=== PATIENT | male | born 1975 | race Caucasian/White ===

== ENCOUNTER 2016-11-05 21:20 | Inpatient (IN) | payer MEDICAID ==
[~2016-11-05] VITALS: Ht 172.7 cm; Wt 71.6 kg
[~2016-11-05 21:20] MED LIST: ACET600C6 PO; ASCO120C PO; BIMA2.5D EACHEYE; CAPT50TA3 PO; CLON-364 PO; CLOP75TA52 PO; COLC0.6T37 PO; DICY20TA3 PO; DORZ10DR21 EACHEYE; FURO80TA3 PO; LEVO100V PO; METO-93 PO; METO25TA91 PO; OM-31CAP4 PO; OMEG500C3 PO; OXYC-293 PO; PANT40TA5 PO; SERTRALINE PO; SIMV40TA3 PO; SOLI5TAB2 PO; VITA1CAP15 PO; [UNRECOGNIZED DRUG - CODE] PO
[2016-11-05] MEDS ORDERED: SODIUM CHLORIDE FLUSH 10ML SYR IVF ONE (22:00)
[2016-11-05] MEDS ORDERED: SODIUM CHLORIDE 0.9% 1,000ML IVBOLUS ONE (22:00)
[2016-11-05 22:36] LABS: ASPARTATE AMINO TRANSFERASE 26 U/L (15-37); BLOOD UREA NITROGEN 28 mg/dL (7-18)
[2016-11-05 22:40] LABS: HEMATOCRIT 46.3 % (39.2-51.8); HEMOGLOBIN 15.5 g/dL (13.7-18.0); WHITE BLOOD COUNT 8.9 x10^3/uL (3.4-10)
[2016-11-05 22:41] LABS: DIFF TOTAL CELLS COUNTED 100 CELL DIFF; IS PT STATUS REG ER OR PRE ER? YES
[2016-11-05 22:43] LABS: VERIFY COUNTS? YES
[2016-11-05 22:44] LABS: LARGE PLATELETS 1+
[2016-11-05] MEDS ORDERED: LIDOCAINE 1%, 20ML ONE (23:16)
[2016-11-05] MEDS ORDERED: LIDOCAINE 1%, 20ML INFIL ONE (23:30)
[2016-11-05] MEDS ORDERED: KETOROLAC 30 MG/1 ML ONE (23:33)
[2016-11-06] MEDS ORDERED: KETOROLAC 30 MG/1 ML IVPush ONE
[2016-11-06] MEDS ORDERED: SODIUM CHLORIDE 0.9% 1,000ML IVBOLUS ONE
[2016-11-06 00:14] LABS: GLUCOSE, CSF 85 mg/dL (40-80)
[2016-11-06] MEDS ORDERED: CEFTRIAXONE PMX 2GM/50ML 50 ML ONE (00:19)
[2016-11-06] MEDS ORDERED: SODIUM CHLORIDE 0.9% 1,000 ML IV SCH (00:30)
[2016-11-06] MEDS ORDERED: VANCOMYCIN 1,300 MG in SODIUM CHLORIDE 0.9% 250 ML IV ONE (00:30)
[2016-11-06] MEDS ORDERED: CEFTRIAXONE PMX 2GM/50ML 50 ML IV ONE (00:30)
[2016-11-06] MEDS ORDERED: VANCOMYCIN PER PHARMACY MC PRN (00:30)
[2016-11-06] MEDS ORDERED: ZOLPIDEM 5MG TABLET PO PRN (00:30)
[2016-11-06] MEDS ORDERED: VANCOMYCIN PER PHARMACY IV ONE (00:30)
[2016-11-06] MEDS ORDERED: CEFTRIAXONE PMX 2GM/50ML 50 ML IV SCH (00:30)
[2016-11-06] MEDS ORDERED: DEXAMETHASONE 4 MG/ML, 1ML IVPush ONE (00:30)
[2016-11-06] MEDS ORDERED: hydrALAzine 20 MG/ML, 1ML IVPush PRN (00:30)
[2016-11-06 00:48] LABS: DAU SCREEN DISCLAIMER
[2016-11-06] MEDS ORDERED: DEXAMETHASONE 4 MG/ML, 1ML ONE (00:53)
[2016-11-06] MEDS ORDERED: PHARMACOKINETIC MONITORING MC PRN (01:00)
[2016-11-06 02:24] VITALS: BP 108/73
[2016-11-06] MEDS: ENOXAPARIN 40 MG/0.4 ML SQ SCH (02:40)
[2016-11-06 07:02] VITALS: BP 108/69
[2016-11-06] MEDS: PANTOPRAZOLE 40 MG IV IVPush SCH (08:29)
[2016-11-06] MEDS: morphine SULFATE 10 MG/ML, 1ML IVPush PRN ×3 (08:39→20:57)
[2016-11-06 08:52] LABS: IS PT STATUS REG ER OR PRE ER? NO
[2016-11-06 11:20] LABS: BLOOD UREA NITROGEN 26 mg/dL (7-18)
[2016-11-06] MEDS: CEFTRIAXONE PMX 2GM/50ML 50 ML IV SCH (12:26)
[2016-11-06 12:35] VITALS: BP 126/82
[2016-11-06 14:06] LABS: BLOOD UREA NITROGEN 24 mg/dL (7-18)
[2016-11-06] MEDS: VANCOMYCIN 1,400 MG in SODIUM CHLORIDE 0.9% 250 ML IV SCH (15:22)
[2016-11-06 17:49] LABS: BLOOD UREA NITROGEN 23 mg/dL (7-18)
[2016-11-06 20:35] VITALS: BP 126/76
[2016-11-06 21:54] LABS: BLOOD UREA NITROGEN 24 mg/dL (7-18)
[2016-11-06] MEDS: SODIUM CHLORIDE 0.9% 1,000 ML IV SCH (23:04)
[2016-11-07] MEDS ORDERED: SODIUM CHLORIDE 0.9% 1,000 ML IV SCH (00:30)
[2016-11-07 01:41] VITALS: BP 104/64
[2016-11-07] MEDS: CEFTRIAXONE PMX 2GM/50ML 50 ML IV SCH (01:46)
[2016-11-07] MEDS: morphine SULFATE 10 MG/ML, 1ML IVPush PRN ×3 (01:46→17:37)
[2016-11-07 02:25] LABS: BLOOD UREA NITROGEN 23 mg/dL (7-18)
[2016-11-07] MEDS: VANCOMYCIN 1,400 MG in SODIUM CHLORIDE 0.9% 250 ML IV SCH (04:02)
[2016-11-07 05:55] LABS: BLOOD UREA NITROGEN 22 mg/dL (7-18)
[2016-11-07 05:58] LABS: ASPARTATE AMINO TRANSFERASE 22 U/L (15-37)
[2016-11-07 07:12] LABS: HEMATOCRIT 36.7 % (39.2-51.8); HEMOGLOBIN 12.3 g/dL (13.7-18.0); WHITE BLOOD COUNT 8.5 x10^3/uL (3.4-10)
[2016-11-07 07:39] LABS: DIFF TOTAL CELLS COUNTED 100 CELL DIFF
[2016-11-07 07:45] LABS: VERIFY COUNTS? YES
[2016-11-07 07:46] LABS: ANISOCYTOSIS 1+; POLYCHROMASIA 1+
[2016-11-07 07:47] LABS: LARGE PLATELETS 1+
[2016-11-07 08:45] VITALS: BP 120/75
[2016-11-07] MEDS: PANTOPRAZOLE 40 MG IV IVPush SCH (09:59)
[2016-11-07] MEDS: ENOXAPARIN 40 MG/0.4 ML SQ SCH (09:59)
[2016-11-07] MEDS: SODIUM CHLORIDE 0.9% 1,000 ML IV SCH (11:23)
[2016-11-07 13:58] VITALS: BP 124/82
[2016-11-07] MEDS ORDERED: OXYcodone IR 5MG TABLET PO PRN (14:00)
[2016-11-07] MEDS: CEFAZOLIN 2,000 MG in DEXTROSE 5% 50 ML IV SCH (17:41)
[2016-11-07] MEDS ORDERED: HYDROmorphone 1 MG/ML, 1ML ONE (19:14)
[2016-11-07] MEDS: HYDROmorphone 2 MG/ML, 1ML IVPush PRN ×2 (19:16→23:29)
[2016-11-07] MEDS ORDERED: KETOROLAC 30 MG/1 ML IVPush PRN (19:30)
[2016-11-07 20:58] VITALS: BP 132/80
[2016-11-08 01:06] VITALS: BP 144/92
[2016-11-08] MEDS: CEFAZOLIN 2,000 MG in DEXTROSE 5% 50 ML IV SCH ×3 (02:12→17:55)
[2016-11-08] MEDS: HYDROmorphone 2 MG/ML, 1ML IVPush PRN ×4 (03:29→15:35)
[2016-11-08 08:38] VITALS: BP 132/85
[2016-11-08] MEDS: ENOXAPARIN 40 MG/0.4 ML SQ SCH (09:00)
[2016-11-08] MEDS ORDERED: KETOROLAC 30 MG/1 ML IVPush ONE (12:00)
[2016-11-08] MEDS ORDERED: OxyconTIN ER 10 MG TAB.ER ONE ×2 (12:04→23:37)
[2016-11-08] MEDS: OxyconTIN ER 20 MG TAB.ER PO SCH (12:06)
[2016-11-08] MEDS: ONDANSETRON 2MG/ML, 2ML IVPush PRN (12:13)
[2016-11-08 15:02] VITALS: BP 131/79
[2016-11-08 19:45] VITALS: BP 126/83
[2016-11-08] MEDS: KETOROLAC 30 MG/1 ML IVPush PRN (20:05)
[2016-11-09] MEDS: OxyconTIN ER 20 MG TAB.ER PO SCH ×2 (00:21→12:26)
[2016-11-09 01:20] VITALS: BP 124/78
[2016-11-09] MEDS: CEFAZOLIN 2,000 MG in DEXTROSE 5% 50 ML IV SCH ×2 (01:28→09:59)
[2016-11-09] MEDS: KETOROLAC 30 MG/1 ML IVPush PRN ×4 (02:55→23:31)
[2016-11-09] MEDS ORDERED: GADOBUTROL 7.5 MMOL/7.5 ML PFS ONE (06:32)
[2016-11-09 08:20] VITALS: BP 125/79
[2016-11-09] MEDS ORDERED: OxyconTIN ER 10 MG TAB.ER ONE (12:24)
[2016-11-09] MEDS: GABAPENTIN 300 MG CAPSULE PO SCH ×2 (12:26→17:35)
[2016-11-09 14:22] VITALS: BP 126/85
[2016-11-09] MEDS ORDERED: CEFAZOLIN PMX 2GM/50ML 50 ML IV SCH (16:00)
[2016-11-09] MEDS: LORazepam 2 MG/ML, 1ML IVPush PRN (16:30)
[2016-11-09] MEDS: CEFAZOLIN PMX 2GM/50ML 50 ML IV SCH (17:36)
[2016-11-09 19:19] VITALS: BP 129/85
[2016-11-10] MEDS ORDERED: OxyconTIN ER 10 MG TAB.ER ONE ×2 (01:01→12:18)
[2016-11-10] MEDS: CEFAZOLIN PMX 2GM/50ML 50 ML IV SCH ×3 (01:22→18:13)
[2016-11-10] MEDS: OxyconTIN ER 20 MG TAB.ER PO SCH ×2 (01:23→12:20)
[2016-11-10 02:53] VITALS: BP 137/74
[2016-11-10] MEDS: ACETAMINOPHEN 325 MG TABLET PO PRN ×2 (05:46→05:47)
[2016-11-10 06:14] LABS: BLOOD UREA NITROGEN 19 mg/dL (7-18)
[2016-11-10 07:57] VITALS: BP 123/80
[2016-11-10] MEDS: GABAPENTIN 300 MG CAPSULE PO SCH ×2 (08:39→17:03)
[2016-11-10] MEDS: KETOROLAC 30 MG/1 ML IVPush PRN ×2 (10:01→19:58)
[2016-11-10 11:59] LABS: HIT LOT CART23835/KIT23844
[2016-11-10 13:53] VITALS: BP 123/77
[2016-11-10 14:01] LABS: HIT OBC PASS; HIT RESULT POSITIVE (NEGATIVE)
[2016-11-10] MEDS: morphine SULFATE 10 MG/ML, 1ML IVPush PRN (17:12)
[2016-11-10 19:00] VITALS: BP 129/77
[2016-11-10] MEDS: LORazepam 2 MG/ML, 1ML IVPush PRN (19:58)
[2016-11-11] MEDS: CEFAZOLIN PMX 2GM/50ML 50 ML IV SCH ×4 (01:08→18:00)
[2016-11-11] MEDS: OxyconTIN ER 20 MG TAB.ER PO SCH ×2 (01:08→12:12)
[2016-11-11 01:29] VITALS: BP 146/83
[2016-11-11] MEDS: KETOROLAC 30 MG/1 ML IVPush PRN ×4 (02:07→23:18)
[2016-11-11] MEDS: ONDANSETRON 2MG/ML, 2ML IVPush PRN (02:07)
[2016-11-11 08:00] VITALS: BP 133/83
[2016-11-11] MEDS: GABAPENTIN 300 MG CAPSULE PO SCH ×3 (08:24→20:33)
[2016-11-11] MEDS ORDERED: BUTALB/APAP/CAFFEINE 50MG/325MG/40MG PO PRN (08:30)
[2016-11-11 14:04] VITALS: BP 146/93
[2016-11-11] MEDS: LORazepam 2 MG/ML, 1ML IVPush PRN (15:24)
[2016-11-11 19:27] VITALS: BP 145/82
[2016-11-11] MEDS: OXYcodone IR 5MG TABLET PO PRN (20:32)
[2016-11-12] MEDS: OxyconTIN ER 20 MG TAB.ER PO SCH ×2 (01:29→14:16)
[2016-11-12] MEDS: CEFAZOLIN PMX 2GM/50ML 50 ML IV SCH ×3 (01:29→21:18)
[2016-11-12 01:35] VITALS: BP 125/76
[2016-11-12 08:00] VITALS: BP 132/86
[2016-11-12] MEDS: LORazepam 2 MG/ML, 1ML IVPush PRN (08:19)
[2016-11-12] MEDS: GABAPENTIN 300 MG CAPSULE PO SCH ×3 (08:20→21:17)
[2016-11-12] MEDS: OXYcodone IR 5MG TABLET PO PRN ×2 (09:24→15:13)
[2016-11-12 14:00] VITALS: BP 147/93
[2016-11-12] MEDS ORDERED: GENTAMICIN 80 MG/2 ML IM SCH ×2 (14:00)
[2016-11-12] MEDS: KETOROLAC 30 MG/1 ML IVPush PRN ×2 (15:13→21:18)
[2016-11-12] MEDS: GENTAMICIN 120 MG in SODIUM CHLORIDE 0.9% 50 ML IV SCH (16:18)
[2016-11-12] MEDS ORDERED: ACETAMINOPHEN 325 MG TABLET PO PRN (17:30)
[2016-11-12] MEDS ORDERED: BUTALB/APAP/CAFFEINE 50MG/325MG/40MG PO PRN (17:30)
[2016-11-12] MEDS ORDERED: hydrALAzine 20 MG/ML, 1ML IVPush PRN (17:30)
[2016-11-12] MEDS ORDERED: ONDANSETRON 2MG/ML, 2ML IVPush PRN (17:30)
[2016-11-12] MEDS ORDERED: ZOLPIDEM 5MG TABLET PO PRN (17:30)
[2016-11-12 19:07] VITALS: BP 136/95
[2016-11-12] MEDS ORDERED: GENTAMICIN 120 MG in SODIUM CHLORIDE 0.9% 50 ML IV SCH (21:00)
[2016-11-12] MEDS: METHOCARBAMOL 750 MG TABLET PO PRN (21:17)
[2016-11-13] MEDS ORDERED: GENTAMICIN 120 MG in SODIUM CHLORIDE 0.9% 50 ML IV SCH (02:00)
[2016-11-13] MEDS ORDERED: GENTAMICIN 80 MG/2 ML IV SCH (02:00)
[2016-11-13 02:16] VITALS: BP 124/76
[2016-11-13] MEDS: GENTAMICIN 120 MG in SODIUM CHLORIDE 0.9% 50 ML IV SCH ×2 (02:49→15:51)
[2016-11-13] MEDS: OxyconTIN ER 20 MG TAB.ER PO SCH ×2 (02:49→14:58)
[2016-11-13] MEDS: METHOCARBAMOL 750 MG TABLET PO PRN (06:00)
[2016-11-13] MEDS: KETOROLAC 30 MG/1 ML IVPush PRN ×2 (06:00→15:56)
[2016-11-13] MEDS: CEFAZOLIN PMX 2GM/50ML 50 ML IV SCH ×3 (06:00→21:17)
[2016-11-13] MEDS: LORazepam 2 MG/ML, 1ML IVPush PRN ×2 (06:10→21:57)
[2016-11-13 06:48] VITALS: BP 116/76
[2016-11-13] MEDS: OXYcodone IR 5MG TABLET PO PRN ×2 (08:56→21:17)
[2016-11-13] MEDS: GABAPENTIN 300 MG CAPSULE PO SCH ×3 (08:56→21:17)
[2016-11-13 12:20] VITALS: BP 123/72
[2016-11-13 19:15] VITALS: BP 144/94
[2016-11-14 02:17] VITALS: BP 139/93
[2016-11-14] MEDS: OxyconTIN ER 20 MG TAB.ER PO SCH ×2 (03:08→15:09)
[2016-11-14] MEDS: GENTAMICIN 120 MG in SODIUM CHLORIDE 0.9% 50 ML IV SCH ×2 (03:09→15:09)
[2016-11-14] MEDS: OXYcodone IR 5MG TABLET PO PRN ×3 (05:31→23:55)
[2016-11-14] MEDS: CEFAZOLIN PMX 2GM/50ML 50 ML IV SCH ×3 (05:31→21:14)
[2016-11-14 07:03] VITALS: BP 140/96
[2016-11-14 07:16] LABS: HEMATOCRIT 34.5 % (39.2-51.8); HEMOGLOBIN 11.4 g/dL (13.7-18.0); WHITE BLOOD COUNT 8.8 x10^3/uL (3.4-10)
[2016-11-14 07:24] LABS: BLOOD UREA NITROGEN 12 mg/dL (7-18)
[2016-11-14 07:33] LABS: ASPARTATE AMINO TRANSFERASE 16 U/L (15-37)
[2016-11-14] MEDS: GABAPENTIN 300 MG CAPSULE PO SCH ×3 (07:58→21:14)
[2016-11-14] MEDS: morphine SULFATE 10 MG/ML, 1ML IVPush PRN ×2 (10:29→20:16)
[2016-11-14] MEDS: LORazepam 2 MG/ML, 1ML IVPush PRN (12:25)
[2016-11-14 14:26] VITALS: BP 137/89
[2016-11-14 20:00] VITALS: BP 162/90
[2016-11-15 02:57] VITALS: BP 144/96
[2016-11-15] MEDS: OxyconTIN ER 20 MG TAB.ER PO SCH ×2 (02:57→15:10)
[2016-11-15] MEDS: GENTAMICIN 120 MG in SODIUM CHLORIDE 0.9% 50 ML IV SCH ×2 (02:57→15:50)
[2016-11-15] MEDS: morphine SULFATE 10 MG/ML, 1ML IVPush PRN ×2 (04:32→13:31)
[2016-11-15] MEDS: CEFAZOLIN PMX 2GM/50ML 50 ML IV SCH ×3 (04:54→21:05)
[2016-11-15 06:37] VITALS: BP 151/83
[2016-11-15 07:00] VITALS: BP 136/93
[2016-11-15] MEDS: GABAPENTIN 300 MG CAPSULE PO SCH ×3 (07:36→21:05)
[2016-11-15] MEDS: OXYcodone IR 5MG TABLET PO PRN ×2 (11:40→21:05)
[2016-11-15 13:30] VITALS: BP 127/90
[2016-11-15] MEDS: LORazepam 2 MG/ML, 1ML IVPush PRN (17:43)
[2016-11-15 19:21] VITALS: BP 137/98
[2016-11-16 01:54] VITALS: BP 124/89
[2016-11-16] MEDS: OxyconTIN ER 20 MG TAB.ER PO SCH ×2 (02:56→15:48)
[2016-11-16] MEDS: GENTAMICIN 120 MG in SODIUM CHLORIDE 0.9% 50 ML IV SCH ×2 (02:57→16:14)
[2016-11-16] MEDS: CEFAZOLIN PMX 2GM/50ML 50 ML IV SCH ×3 (05:23→21:49)
[2016-11-16] MEDS: morphine SULFATE 10 MG/ML, 1ML IVPush PRN ×5 (05:24→21:49)
[2016-11-16 07:52] VITALS: BP 121/81
[2016-11-16] MEDS: GABAPENTIN 300 MG CAPSULE PO SCH ×3 (09:32→20:41)
[2016-11-16 14:30] VITALS: BP 144/82
[2016-11-16 19:46] VITALS: BP 128/82
[2016-11-16] MEDS: METHOCARBAMOL 750 MG TABLET PO PRN (20:41)
[2016-11-17] MEDS: LORazepam 2 MG/ML, 1ML IVPush PRN (00:39)
[2016-11-17 01:35] VITALS: BP 106/71
[2016-11-17] MEDS: GENTAMICIN 120 MG in SODIUM CHLORIDE 0.9% 50 ML IV SCH ×2 (03:49→16:27)
[2016-11-17] MEDS: OxyconTIN ER 20 MG TAB.ER PO SCH ×2 (03:49→14:21)
[2016-11-17] MEDS: CEFAZOLIN PMX 2GM/50ML 50 ML IV SCH ×3 (06:27→23:08)
[2016-11-17] MEDS: morphine SULFATE 10 MG/ML, 1ML IVPush PRN ×4 (06:27→20:16)
[2016-11-17 08:11] VITALS: BP 110/75
[2016-11-17] MEDS: GABAPENTIN 300 MG CAPSULE PO SCH ×3 (08:32→20:16)
[2016-11-17 13:42] VITALS: BP 124/73
[2016-11-17] MEDS: OxyconTIN ER 40 MG TAB.ER PO SCH (20:00)
[2016-11-17] MEDS ORDERED: OxyconTIN ER 20 MG TAB.ER ONE (20:07)
[2016-11-17] MEDS: DOCUSATE 100 MG CAPSULE PO SCH (20:16)
[2016-11-17] MEDS: DULOXETINE 20 MG CAPSULE.DR PO SCH (20:17)
[2016-11-17 21:02] VITALS: BP 118/81
[2016-11-18] MEDS: morphine SULFATE 10 MG/ML, 1ML IVPush PRN ×3 (01:48→19:02)
[2016-11-18 02:00] VITALS: BP 103/67
[2016-11-18] MEDS: GENTAMICIN 120 MG in SODIUM CHLORIDE 0.9% 50 ML IV SCH (04:50)
[2016-11-18 06:31] LABS: HEMATOCRIT 40.4 % (39.2-51.8); HEMOGLOBIN 13.4 g/dL (13.7-18.0); WHITE BLOOD COUNT 7.5 x10^3/uL (3.4-10)
[2016-11-18] MEDS: CEFAZOLIN PMX 2GM/50ML 50 ML IV SCH ×3 (06:33→22:00)
[2016-11-18 06:58] LABS: BLOOD UREA NITROGEN 22 mg/dL (7-18)
[2016-11-18 07:06] VITALS: BP 124/83
[2016-11-18] MEDS: OxyconTIN ER 40 MG TAB.ER PO SCH ×2 (08:00→20:00)
[2016-11-18] MEDS ORDERED: OxyconTIN ER 20 MG TAB.ER ONE ×2 (08:44→20:44)
[2016-11-18] MEDS: DULOXETINE 20 MG CAPSULE.DR PO SCH ×2 (08:47→20:45)
[2016-11-18] MEDS: GABAPENTIN 300 MG CAPSULE PO SCH ×3 (08:47→20:45)
[2016-11-18] MEDS: DOCUSATE 100 MG CAPSULE PO SCH ×2 (08:47→20:45)
[2016-11-18 12:17] VITALS: BP 116/79
[2016-11-18 18:38] VITALS: BP 122/86
[2016-11-19] MEDS: morphine SULFATE 10 MG/ML, 1ML IVPush PRN ×4 (00:42→22:08)
[2016-11-19 02:10] VITALS: BP 118/80
[2016-11-19] MEDS: CEFAZOLIN PMX 2GM/50ML 50 ML IV SCH ×2 (06:11→16:39)
[2016-11-19 06:53] VITALS: BP 125/82
[2016-11-19] MEDS: OxyconTIN ER 40 MG TAB.ER PO SCH ×2 (08:44→20:08)
[2016-11-19] MEDS: METHOCARBAMOL 750 MG TABLET PO PRN (08:44)
[2016-11-19] MEDS: DOCUSATE 100 MG CAPSULE PO SCH ×2 (08:45→19:28)
[2016-11-19] MEDS: GABAPENTIN 300 MG CAPSULE PO SCH ×3 (09:00→21:29)
[2016-11-19] MEDS: OXYcodone IR 5MG TABLET PO PRN ×2 (11:13→20:10)
[2016-11-19] MEDS: DULOXETINE 20 MG CAPSULE.DR PO SCH ×2 (11:13→20:08)
[2016-11-19 13:10] VITALS: BP 114/80
[2016-11-19 19:56] VITALS: BP 124/89
[2016-11-20] MEDS: CEFAZOLIN PMX 2GM/50ML 50 ML IV SCH ×3 (00:08→16:38)
[2016-11-20 02:00] VITALS: BP 118/83
[2016-11-20] MEDS: OXYcodone IR 5MG TABLET PO PRN ×2 (04:38→12:16)
[2016-11-20 08:10] VITALS: BP 114/73
[2016-11-20] MEDS: OxyconTIN ER 40 MG TAB.ER PO SCH ×2 (08:21→21:15)
[2016-11-20] MEDS: DOCUSATE 100 MG CAPSULE PO SCH ×2 (08:22→21:00)
[2016-11-20] MEDS: DULOXETINE 20 MG CAPSULE.DR PO SCH ×2 (08:22→21:15)
[2016-11-20] MEDS: GABAPENTIN 300 MG CAPSULE PO SCH ×3 (08:22→21:16)
[2016-11-20 13:21] VITALS: BP 122/52
[2016-11-20] MEDS: morphine SULFATE 10 MG/ML, 1ML IVPush PRN (17:31)
[2016-11-20 19:23] VITALS: BP 134/79
[2016-11-20] MEDS: LORazepam 2 MG/ML, 1ML IVPush PRN (21:16)
[2016-11-20] MEDS ORDERED: hydrALAzine 20 MG/ML, 1ML IVPush PRN (21:30)
[2016-11-20] MEDS ORDERED: ONDANSETRON 2MG/ML, 2ML IVPush PRN (21:30)
[2016-11-20] MEDS ORDERED: ACETAMINOPHEN 325 MG TABLET PO PRN (21:30)
[2016-11-20] MEDS ORDERED: ZOLPIDEM 5MG TABLET PO PRN (21:30)
[2016-11-21 00:57] VITALS: BP 116/75
[2016-11-21] MEDS: CEFAZOLIN PMX 2GM/50ML 50 ML IV SCH ×3 (01:18→16:39)
[2016-11-21] MEDS: morphine SULFATE 10 MG/ML, 1ML IVPush PRN ×2 (05:10→12:02)
[2016-11-21 07:28] VITALS: BP 112/74
[2016-11-21] MEDS: OxyconTIN ER 40 MG TAB.ER PO SCH ×2 (08:00→20:00)
[2016-11-21] MEDS: DOCUSATE 100 MG CAPSULE PO SCH ×2 (08:40→21:18)
[2016-11-21] MEDS: GABAPENTIN 300 MG CAPSULE PO SCH ×3 (08:40→21:17)
[2016-11-21] MEDS: DULOXETINE 20 MG CAPSULE.DR PO SCH ×2 (08:40→21:17)
[2016-11-21 14:35] VITALS: BP 114/82
[2016-11-21] MEDS: OXYcodone IR 5MG TABLET PO PRN ×2 (16:39→23:22)
[2016-11-21 20:19] VITALS: BP 123/79
[2016-11-22] MEDS: CEFAZOLIN PMX 2GM/50ML 50 ML IV SCH ×3 (00:35→16:38)
[2016-11-22 01:17] VITALS: BP 122/82
[2016-11-22] MEDS: OXYcodone IR 5MG TABLET PO PRN ×3 (04:32→16:38)
[2016-11-22 07:46] VITALS: BP 121/72
[2016-11-22] MEDS: DOCUSATE 100 MG CAPSULE PO SCH ×2 (08:06→19:56)
[2016-11-22] MEDS: DULOXETINE 20 MG CAPSULE.DR PO SCH ×2 (08:06→19:55)
[2016-11-22] MEDS: OxyconTIN ER 40 MG TAB.ER PO SCH ×2 (08:06→19:55)
[2016-11-22] MEDS: GABAPENTIN 300 MG CAPSULE PO SCH ×3 (08:06→19:56)
[2016-11-22 14:14] VITALS: BP 123/79
[2016-11-22 19:17] VITALS: BP 122/83
[2016-11-22] MEDS: LORazepam 2 MG/ML, 1ML IVPush PRN (22:16)
[2016-11-23] MEDS: CEFAZOLIN PMX 2GM/50ML 50 ML IV SCH ×3 (00:40→16:44)
[2016-11-23] MEDS: morphine SULFATE 10 MG/ML, 1ML IVPush PRN ×2 (00:44→16:44)
[2016-11-23 01:20] VITALS: BP 120/81
[2016-11-23 08:12] VITALS: BP 116/80
[2016-11-23] MEDS: DOCUSATE 100 MG CAPSULE PO SCH ×2 (09:00→21:00)
[2016-11-23] MEDS: DULOXETINE 20 MG CAPSULE.DR PO SCH ×2 (09:01→22:39)
[2016-11-23] MEDS: GABAPENTIN 300 MG CAPSULE PO SCH ×3 (09:02→22:40)
[2016-11-23] MEDS: OxyconTIN ER 40 MG TAB.ER PO SCH ×2 (09:03→22:39)
[2016-11-23 14:07] VITALS: BP 119/86
[2016-11-23 20:13] VITALS: BP 117/80
[2016-11-24] MEDS: CEFAZOLIN PMX 2GM/50ML 50 ML IV SCH ×4 (01:03→23:03)
[2016-11-24] MEDS: OXYcodone IR 5MG TABLET PO PRN ×2 (01:09→13:43)
[2016-11-24 03:00] VITALS: BP 119/86
[2016-11-24] MEDS: morphine SULFATE 10 MG/ML, 1ML IVPush PRN ×2 (04:57→15:22)
[2016-11-24 07:33] VITALS: BP 111/74
[2016-11-24] MEDS: OxyconTIN ER 40 MG TAB.ER PO SCH ×2 (08:27→20:13)
[2016-11-24] MEDS: DOCUSATE 100 MG CAPSULE PO SCH ×2 (08:27→20:14)
[2016-11-24] MEDS: GABAPENTIN 300 MG CAPSULE PO SCH ×3 (08:27→20:14)
[2016-11-24] MEDS: DULOXETINE 20 MG CAPSULE.DR PO SCH ×2 (08:27→20:13)
[2016-11-24 14:00] VITALS: BP 123/81
[2016-11-24 19:30] VITALS: BP 121/74
[2016-11-25] MEDS: OXYcodone IR 5MG TABLET PO PRN (02:05)
[2016-11-25 02:15] VITALS: BP 114/78
[2016-11-25] MEDS: CEFAZOLIN PMX 2GM/50ML 50 ML IV SCH (06:13)
[2016-11-25 07:13] VITALS: BP 114/88
[2016-11-25] MEDS: DOCUSATE 100 MG CAPSULE PO SCH (09:00)
[2016-11-25] MEDS: DULOXETINE 20 MG CAPSULE.DR PO SCH (09:06)
[2016-11-25] MEDS: OxyconTIN ER 40 MG TAB.ER PO SCH (09:06)
[2016-11-25] MEDS: GABAPENTIN 300 MG CAPSULE PO SCH (09:07)
[2016-11-25] MEDS: METHOCARBAMOL 750 MG TABLET PO PRN (09:07)
[2016-11-25 10:46] LABS: DAU SCREEN DISCLAIMER
== END 2016-11-25 11:23 | disposition left against medical advice (07) | DRG 871 ==
LOC: ED 22:53 → EDIP 11-06 00:30 → 4NOR 11-06 01:48 → 5SO 11-06 11:00 → 4EST 11-10 12:33 → 4WST 11-15 16:13 → 3NE 11-19 05:38
PROVIDERS: ADMIT Family Medicine; ATTEND Hospitalist
PROC: 009U3ZX Drainage of Spinal Canal, Percutaneous Approach, Diagnostic (ICD-10-PCS; principal; 2016-11-05)
PROC: 02HV33Z Insertion of Infusion Device into Superior Vena Cava, Percutaneous Approach (ICD-10-PCS; 2016-11-24)
DX: A41.01 Sepsis due to Methicillin susceptible Staphylococcus aureus (principal); E43 Unspecified severe protein-calorie malnutrition; I33.0 Acute and subacute infective endocarditis; I76 Septic arterial embolism; G06.1 Intraspinal abscess and granuloma; D75.82 Heparin induced thrombocytopenia (HIT); E11.69 Type 2 diabetes mellitus with other specified complication; G03.9 Meningitis, unspecified; E87.1 Hypo-osmolality and hyponatremia; B18.1 Chronic viral hepatitis B without delta-agent; L02.11 Cutaneous abscess of neck; M46.22 Osteomyelitis of vertebra, cervical region; G95.29 Other cord compression; M48.54XA Collapsed vertebra, not elsewhere classified, thoracic region, initial encounter for fracture; W18.30XA Fall on same level, unspecified, initial encounter; E86.0 Dehydration; B35.1 Tinea unguium; D63.8 Anemia in other chronic diseases classified elsewhere; B35.3 Tinea pedis; B18.2 Chronic viral hepatitis C; E03.9 Hypothyroidism, unspecified; E86.1 Hypovolemia; F15.10 Other stimulant abuse, uncomplicated; F17.200 Nicotine dependence, unspecified, uncomplicated; F32.9 Major depressive disorder, single episode, unspecified; G89.29 Other chronic pain; I08.1 Rheumatic disorders of both mitral and tricuspid valves; J45.909 Unspecified asthma, uncomplicated; L29.9 Pruritus, unspecified; M46.40 Discitis, unspecified, site unspecified; M48.02 Spinal stenosis, cervical region; R65.20 Severe sepsis without septic shock; Z86.711 Personal history of pulmonary embolism; Z91.14 Patient's other noncompliance with medication regimen; Y93.89 Activity, other specified; Y92.89 Other specified places as the place of occurrence of the external cause; Y99.8 Other external cause status; Z53.21 Procedure and treatment not carried out due to patient leaving prior to being seen by health care provider; Z68.24 Body mass index [BMI] 24.0-24.9, adult
CPT/HCPCS: 36415; 36569; 62270; 70450; 71010; 72125; 72141; 72142; 76937; 77001; 80048; 80053; 80307; 80356; 81001; 82040; 82945; 82962; 83605; 84134; 84145; 84157; 84443; 84484; 85025; 85610; 85651; 85730; 86022; 86140; 87040; 87070; 87077; 87086; 87147; 87186; 87205; 87252; 89051; 93005; 93306; 96361; 96365; 96375; A9585; J0690; J0696; J1100; J1170; J1650; J1885; J2405; J3370; C1751; C9113; G0479; G0480; J1580; J2060; J2270; J7030; J7050

== ENCOUNTER 2017-02-08 12:23 | Emergency (ER) | payer OTHER, MEDICAID ==
[~2017-02-08] VITALS: Ht 165.1 cm; Wt 64.0 kg
[2017-02-08] MEDS ORDERED: SODIUM CHLORIDE FLUSH 10ML SYR IVF ONE (13:00)
[2017-02-08] MEDS ORDERED: SODIUM CHLORIDE 0.9% 1,000ML IVBOLUS ONE (13:00)
[2017-02-08] MEDS ORDERED: KETOROLAC 30 MG/1 ML IVPush ONE (13:00)
[2017-02-08 13:06] LABS: HEMATOCRIT 52.5 % (39.2-51.8); HEMOGLOBIN 17.4 g/dL (13.7-18.0); WHITE BLOOD COUNT 6.7 x10^3/uL (3.4-10)
[2017-02-08] MEDS ORDERED: KETOROLAC 30 MG/1 ML ONE (13:16)
[2017-02-08 13:19] LABS: ASPARTATE AMINO TRANSFERASE 35 U/L (15-37); BLOOD UREA NITROGEN 18 mg/dL (7-18)
[2017-02-08 13:24] LABS: IS PT STATUS REG ER OR PRE ER? YES
[2017-02-08 14:02] VITALS: BP 137/84
== END 2017-02-08 14:52 | disposition home or self-care (01) ==
LOC: ED 12:43
DX: R07.89 Other chest pain (principal); E11.9 Type 2 diabetes mellitus without complications; J45.909 Unspecified asthma, uncomplicated
CPT/HCPCS: 36415; 71010; 80053; 83880; 84484; 85025; 85610; 85651; 85730; 86141; 87040; 93005; 96374; 99285; J1885; J7030